=== PATIENT | male | born 1960 | race Caucasian/White ===

== ENCOUNTER 2023-04-25 22:18 | Inpatient (IN) | payer OTHER, SELFPAY ==
[2023-04-25 22:21] VITALS: BP 166/96; PULSE 129; RESP 16; TEMP 36.3; O2SAT 97; BMI 26.6
[2023-04-25 22:27] VITALS: BMI 28.8
--- NOTE | 2023-04-25 23:12 | EDS_ITS ---
HPI History of Present Illness Chief Complaint: Seizure [facility] Medical History Alcohol abuse Home Medications NK 04/25/23 [History Last Taken Unknown] Allergy/AdvReac Type Severity Reaction Status Date / Time No Known Allergies Allergy Verified 04/25/23 22:21 Social History Smoking Status: Never smoker EXAM Physical Exam Const Vital Signs: 04/25/23 22:21 04/26/23 02:08 Temperature 97.4 F L Temperature Source Temporal Pulse Rate 129 H 107 H Respiratory Rate 16 15 Blood Pressure 166/96 H 162/111 H Blood Pressure Mean 119 128 Pulse Ox 97 96 Oxygen Delivery Method Room Air [facility] MDM Narrative Medical decision making narrative: HISTORY OF PRESENT ILLNESS: 63-year-old male here with concern for possible seizure. States he previously drank 6-8 beers and 5-6 shots a day. He further states he may have had a seizure prior to arrival. Patient notes tongue biting and bladder incontinence. He states he has no focal weakness. Denies any chest pain prior to event. Did not fall or have any head trauma. Denies history of alcohol withdrawal. Last drink was 7 days ago. REVIEW OF SYSTEMS: Pertinent positives: Concern for seizure Pertinent negatives: Focal weakness, headache PHYSICAL EXAM: Nursing triage notes reviewed, Vital signs reviewed Constitutional: please see mdm HENT: MMM Eyes: Pupils equal round and reactive to light, Extraocular muscles intact Neck: No stridor, no JVD, full neck ROM Lungs: Clear to auscultation, No wheezing or rales. No increased work of breathing, no conversational dyspnea, no accessory muscle use, no nasal flaring. No respiratory distress noted Heart: Regular rate and rhythm, No murmurs, No rubs and No gallops, 2+ distal pulses (radial, femoral, posterior tibial) in all extremities Abdomen: Soft, there is no tenderness, rigidity, rebound or guarding, no obvious peritoneal signs, no palpable pulsatile abdominal masses, no auscultated abdominal bruit : No CVAT Extremities: No edema Neuro: No focal neurological deficits, cranial nerves II through XII intact, 5/5 strength in all extremities. Intact sensation to light touch in all extremities, 2+ reflexes bilateral patella tendons. Normal gait. No ataxia. Patient appeared tremulous, had tongue fasciculations Skin: No rash or lesions noted MEDICAL DECISION MAKING: Chief Complaint: Possible seizure External records reviewed: No recent ED visits or hospitalizations noted in the chart Factors affecting care: History of alcohol abuse Social determinants of health: History of alcohol abuse History obtained from others: Patient's friend Consults: Internal medicine ALL IMAGES (IF OBTAINED) HAVE BEEN PERSONALLY REVIEWED AND INTERPRETED BY MYSELF. EKG with sinus tachycardia, normal axis, prolonged QT, no STEMI, MDM Narrative: Patient was initially tachycardic, hypertensive. Patient was tremulous, tongue fasciculations. Given hypertension and tachycardia and tremor clinically patient presented that he is in alcohol withdrawal. I considered the following differential diagnosis: Alcohol withdrawal, other intoxication, arrhythmia, seizure disorder, ICH, mass I obtained a CT scan of the patient's head to rule out bleed or mass. CT scan showed no evidence of acute intracranial normality. Labs were remarkable for hypokalemia, hyponatremia, hypomagnesemia this was replaced. Magnesium was empirically replaced. Electrolyte disturbance likely secondary to malnutrition secondary to chronic alcohol abuse. He was given thiamine. He was given fluids. He was given phenobarbital and Ativan for alcohol withdrawal treatment. I spoke with the hospitalist for admission. The patient and/or family, caregivers express understanding. The patient and/or family, caregivers agrees with the plan. Shared decision making: I will have a discussion with the patient and or visitors regarding risk/benefits of further testing or admission. They will be made aware of of the risk/benefits inherent in this decision they will be given the opportunity to voice understanding. Total critical care time today provided was at least 0 [] minutes. This excludes separately billable procedures. Critical care time (if documented) is secondary to the patient having high probability of clinically significant/life threatening deterioration in the patient's condition which required my urgent intervention. Lab Data Attestation: I reviewed the patient's lab results. Lab results narrative: CBC without evidence of leukocytosis, anemia, noted thrombocytopenia BMP with hyponatremia, severe hypokalemia, no anion gap to suggest endorgan hypoperfusion, no HOANG Magnesium is low Noted hyperbilirubinemia, mild elevation in AST no evidence of hepatobiliary obstruction on LFTs Serum alcohol negative Labs: Laboratory Results - last 24 hr 04/25/23 04/26/23 23:25 01:38 WBC 10.5 RBC 3.66 L Hgb 12.4 L Hct 36.0 L MCV 98.4 H MCH 33.9 H MCHC 34.4 RDW Std Deviation 48.0 H RDW Coeff of Blank 13.4 Plt Count 110 L MPV 11.4 Immature Gran % (Auto) 0.700 Neut % (Auto) 75.5 H Lymph % (Auto) 10.3 L [place] % (Auto) 12.4 H Eos % (Auto) 0.3 Baso % (Auto) 0.8 Absolute Neuts (auto) 7.9 H Absolute Lymphs (auto) 1.08 Nucleated RBC % 0 Sodium 135 L Potassium 2.6 L* Chloride 101 Carbon Dioxide 27.0 Anion Gap 7 BUN 12 Creatinine 1.00 Estim Creat Clear Calc 74.10 Est GFR (MDRD) Af Amer 97 Est GFR (MDRD) Non-Af 80 BUN/Creatinine Ratio 12.0 Glucose 127 H Calcium 8.8 Magnesium 1.4 L Total Bilirubin 1.70 H AST 48 H ALT 53 Alkaline Phosphatase 96 Total Protein 7.8 Albumin 3.6 Globulin 4.2 Albumin/Globulin Ratio 0.9 Urine Opiates Screen NEGATIVE Urine Methadone Screen NEGATIVE Ur Barbiturates Screen NEGATIVE Ur Phencyclidine Scrn NEGATIVE Ur Amphetamines Screen NEGATIVE MDMA (Ecstasy) Screen NEGATIVE U Benzodiazepines Scrn NEGATIVE Urine Cocaine Screen NEGATIVE U Cannabinoids Screen NEGATIVE Ur Drug Screen Comment Ethyl Alcohol < 3.0 Radiography Diagnostic Testing: Clinical Impression(s) from Imaging Studies Brain CT 04/26/23 23:36 IMPRESSION: No acute intracranial abnormality. Electronically Signed: Romario Mckinnon DO at 0:23 EDT Reading Location ID and State: [facility] / [place] Tel , Service support , Discharge Plan Triage Chief Complaint: Seizure Other Complaint: Substance Abuse ED Provider: Tom Olivier Dx/Rx/DC Orders Clinical Impression: Alcohol withdrawal, Acute hyponatremia, Acute hypokalemia, Hypomagnesemia Prescriptions: No Action NK Primary Care Provider: Be Reynoso Referrals: Be Reynoso MD [Primary Care Provider] - Disposition Disposition: Acute Care [facility]
[2023-04-25 23:37] LABS: Absolute Lymphocyte Count 1.08 X10^3/uL (0.83-4.51); Absolute Neutrophil Count 7.9 X10^3/uL (2.0-7.7); Basophil# 0.08 X10^3/uL; Basophil% 0.8 % (0-1); Eosinophil# 0.03 X10^3/uL; Eosinophils% 0.3 % (0-5); Hemoglobin 12.4 g/dL (13.0-16.5); Lymphocyte # 1.08 X10^3/ul (0.83-4.51); Lymphocyte % 10.3 % (19-41); Mean Corp Hgb Conc 34.4 g/dL (32-36); Mean Corpuscular Hgb 33.9 pg (27.0-32.0); Mean Corpuscular Volume 98.4 fL (80-94); Mean Platelet Vol. 11.4 fl (6.2-12.0); Monocyte% 12.4 % (0-10); NRBC Flagged by Analyzer 0 % (0-5); Neutrophil % 75.5 % (47-70); Platelet Count 110 K/mm3 (150-450); RBC Distribution Width CV 13.4 % (11.6-14.6); Red Blood Count 3.66 M/mm3 (4.6-6.2); White Blood Count 10.5 K/mm3 (4.4-11.0)
[2023-04-25 23:56] LABS: Alcohol, Blood (Medical)-Serum < 3.0 mg/dL
[2023-04-25] MEDS: LORazepam 2 MG/ML Syringe 1 MG IV (23:59)
[2023-04-26] VITALS (14 sets, daily range): BP systolic 100–162; BP diastolic 58–111; PULSE 84–107; RESP 13–22; TEMP 36.6–37.3; O2SAT 94–100; BMI 29.0
[2023-04-26 00:06] LABS: ALB/GLOB Ratio 0.9 RATIO (0.9-2.4); AST(SGOT) 48 U/L (15-37); Alanine Aminotransfer ALT/SGPT 53 U/L (16-61); Albumin, Serum 3.6 g/dL (3.2-5.0); Alkaline Phosphatase 96 U/L (45-117); Anion Gap 7 (5-15); BUN 12 mg/dL (7-18); Calcium,Total 8.8 mg/dL (8.5-10.1); Chloride 101 mmol/L (98-107); EST Glomerular Filtration Rate 80 mL/min (>60); Est Glom Filt Rate - Afr Amer 97 mL/min (>60); Globulin 4.2 g/dL (2.2-4.2); Glucose 127 mg/dL (74-106); Potassium 2.6 mmol/L (3.5-5.1); Protein, Total 7.8 g/dL (6.4-8.2); Sodium Level 135 mmol/L (136-145)
--- NOTE | 2023-04-26 00:14 | EKG12_ITS ---
Test Reason : Dysrhythmia Blood Pressure : / mmHG Vent. Rate : 115 BPM Atrial Rate : 115 BPM P-R Int : 164 ms QRS Dur : 088 ms QT Int : 348 ms P-R-T Axes : 060 009 057 degrees QTc Int : 481 ms Sinus tachycardia Possible Inferior infarct , age undetermined Abnormal ECG Confirmed by KAYCEE KOHLI, JOSE ([id number]), field map editor ZAKI CORDOVA ([id number]) on 04/28/2023 8:47:19 AM Referred By: Sabina Brandon Confirmed By:KEN BENOIT MD
[2023-04-26 00:32] LABS: Magnesium 1.4 mg/dL (1.6-2.6)
[2023-04-26] MEDS: Potassium Chloride Oral Tablet 20 MEQ 40 MEQ PO ×2 (01:00→07:55)
[2023-04-26] MEDS: Potassium Chloride 10mEq/100mL 10 MEQ/100 ML IV.SOLN. 100 MEQ IV BOLUS ×2 (01:30→02:55)
[2023-04-26 01:58] LABS: Amphetamine Urine VISTA NEGATIVE (<1000 ng/mL); Barbiturate Urine VISTA NEGATIVE (< 200 ng/mL); Benzodiazepine Urine VISTA NEGATIVE (< 200 ng/mL); Cocaine Urine VISTA NEGATIVE (< 300 ng/mL); Ecstacy Urine VISTA NEGATIVE (< 500 ng/mL); Methadone Urine VISTA NEGATIVE (< 300 ng/mL); PCP Urine VISTA NEGATIVE (< 25 ng/mL); THC Urine VISTA NEGATIVE (< 50 ng/mL); Vista UDS pH Range 6
--- NOTE | 2023-04-26 02:02 | HP.PCM.HOS_ITS ---
HPI - General General Date of Admission: 04/26/23 Date of Service: 04/26/23 Chief Complaint: Acute EtOH withdrawal. HPI Narrative The patient is a 63 y/o M w/ PMHx: EtOH abuse (recently attempted to quit, prior 6-8 beers/5-6 liquor shots daily) who presents to the [facility] ED on 04/26/23 with history of abruptly stopping alcohol over the last couple days with onset notable tremors, nausea, intractable emesis, malaise, tactile disturbances and eventually a seizure prompting EMS call with noted loss of bladder and tongue bitting with associated post-ictal phase with eventual improvement of MS in the ED with no associated trauma. He is unsure exactly when his last EtOH intake was reporting to the ED physician initially 1 week but when discussed he is unsure and gives several possibilities. Work-up in the ED included T97.4, heart rate 129, BP 166/96, respiratory rate 16, 97% oxygenation, CBC with a BC 10.5, hemoglobin 12.4, MCV 98.4, platelets 110 with left shift, CMP with sodium 135, potassium 2.6, glucose 127, magnesium 1.4, T. bili 1.74, AST/ALT 48/53 otherwise hepatic profile not marked appearing, UDS negative, ethyl alcohol level less than 3, CT the brain with no acute intracranial, rapid SARS COVID and influenza antigen negative, EKG with sinus tachycardia, normal axis, prolonged QT, no STEMI. In the ED patient administered IV thiamine, potassium 40 mill equivalent p.o. x1, phenobarbital 97.2 mg p.o. x1, magnesium 2 g IV x1 as well as Ativan 1 mg IV x1. [facility] Medical History (Updated 04/26/23 @ 02:[address] Sabina Brandon MD) Alcohol abuse Cannabis use disorder Chronic anemia Overweight Home Medications NK 04/25/23 [History Last Taken Unknown] Allergy/AdvReac Type Severity Reaction Status Date / Time No Known Allergies Allergy Verified 04/25/23 22:21 Family History (Updated 04/26/23 @ 02:[address] Sabina Brandon MD) Mother Rheumatoid arthritis Father Heart disease COPD (chronic obstructive pulmonary disease) Grandmother Alcoholism Maternal side. Grandfather Alcoholism Maternal side. Surgical History (Updated 04/26/23 @ 02:[address] Sabina Brandon MD) History of nasal surgery S/P left knee arthroscopy Social History (Updated 04/26/23 @ 02:[address] Sabina Brandon MD) household members: none Smoking Status: Never smoker alcohol intake: current alcohol intake frequency: 3 or more drinks per day details: 6-8 beers/several liquor shots daily, recently quit. substance use type: marijuana ROS ROS Narrative Admission Review of Systems: CONSTITUTIONAL: No weight loss, fever, chills, + weakness or fatigue. HEENT: Eyes: No visual loss, blurred vision, double vision or yellow sclerae. Ears, Nose, Throat: No hearing loss, sneezing, congestion, runny nose or sore throat. SKIN: No rash or itching, lesions, wounds. CARDIOVASCULAR: No chest pain, chest pressure or chest discomfort, palpitations, edema, orthopnea, syncopal events. RESPIRATORY: No shortness of breath, cough or sputum, wheezing, hemoptysis. GASTROINTESTINAL: + anorexia, nausea, vomiting, No diarrhea, abdominal pain, melena, BRBPR. GENITOURINARY: No dysuria, frequency, urgency or retention. NEUROLOGICAL: + Tremors, tactile disturbances, seizure activity, loss of bladder. No headache, dizziness, syncope, paralysis, ataxia, numbness or tingling in the extremities, focal weakness. MUSCULOSKELETAL: + muscle, back pain, joint pain or stiffness. HEMATOLOGIC: + anemia. LYMPHATICS: No enlarged nodes. No history of splenectomy. PSYCHIATRIC: No history of depression or anxiety. ENDOCRINOLOGIC: No reports of sweating, cold or heat intolerance. No polyuria or polydipsia. ALLERGIES: No history of asthma, hives, eczema or rhinitis. Vital Signs Vital Signs Vital Signs: 04/25/23 22:21 Temperature 97.4 F L Temperature Source Temporal Pulse Rate 129 H Respiratory Rate 16 Blood Pressure 166/96 H Blood Pressure Mean 119 Pulse Ox 97 Weight Weight: 189 lb 9.561 oz Body Mass Index (BMI) 28.8 Physical Exam Narrative Physical Examination: General: Awake, alert, oriented x 3 and cooperative, seated upright in the ED bed, significantly improved since initial ED presentation, postictal phase resolved. Skin: Normal color, normal turgor, no icterus, no cyanosis except occasional staged ecchymoses. HEENT: AT/NC, EOMI, PERRLA, dry MM, no carotid bruits or JVD noted. Lungs: Mildly diminished, greater bases, appropriate effort, no rales, ronchi or wheezing. Heart: Mildly tachycardic with regular rhythm; no gallop, rub audible. Abdomen: Soft, overweight, NTTP, ND, normal BS, appreciated HM. Extremities: No cyanosis, clubbing, or edema. Neurological: Patient awake, alert, oriented as noted, cognitive function intact; pupils equally reactive to light and accommodation, cranial nerves II- XII grossly normal, moving all 4 extremities, no focal deficits, strength improving but moderately global decrease given acute presentation with seizure activity, currently no obvious significant tremors or tactile disturbances. Psychiatric: Affect appears fatigued, no acute evidence of depressive or anxiety feelings. Results Lab / Micro Data 04/25/23 23:25 04/25/23 23:25 Labs: Laboratory Results - last 24 hr 04/25/23 23:25: WBC 10.5, RBC 3.66 L, Hgb 12.4 L, Hct 36.0 L, MCV 98.4 H, MCH 33.9 H, MCHC 34.4, RDW Std Deviation 48.0 H, RDW Coeff of Blank 13.4, Plt Count 110 L, MPV 11.4, Immature Gran % (Auto) 0.700, Neut % (Auto) 75.5 H, Lymph % (Auto) 10.3 L, [place] % (Auto) 12.4 H, Eos % (Auto) 0.3, Baso % (Auto) 0.8, Absolu te Neuts (auto) 7.9 H, Absolute Lymphs (auto) 1.08, Nucleated RBC % 0, Sodium 135 L, Potassium 2.6 L*, Chloride 101, Carbon Dioxide 27.0, Anion Gap 7, BUN 12, Creatinine 1.00, Estim Creat Clear Calc 74.10, Est GFR (MDRD) Af Amer 97, Est GFR (MDRD) Non-Af 80, BUN/Creatinine Ratio 12.0, Glucose 127 H, Calcium 8.8, Magnesium 1.4 L, Total Bilirubin 1.70 H, AST 48 H, ALT 53, Alkaline Phosphatase 96, Total Protein 7.8, Albumin 3.6, Globulin 4.2, Albumin/Globulin Ratio 0.9, Ethyl Alcohol < 3.0 04/26/23 01:38: Urine Opiates Screen NEGATIVE, Urine Methadone Screen NEGATIVE, Ur Barbiturates Screen NEGATIVE, Ur Phencyclidine Scrn NEGATIVE, Ur Amphetamines Screen NEGATIVE, MDMA (Ecstasy) Screen NEGATIVE, U Benzodiazepines Scrn NEG ATIVE, Urine Cocaine Screen NEGATIVE, U Cannabinoids Screen NEGATIVE, Ur Drug Screen Comment Micro: Microbiology 04/26/23 00:55 Nasal Secretion SARS-CoV-2 & FLU Antigen (Rapid) - Final Radiology Impression Brain CT 04/26/23 23:36 IMPRESSION: No acute intracranial abnormality. Electronically Signed: Romario Mckinnon DO at 0:23 EDT , Assessment & Plan Assessment/Plan (1) Alcohol withdrawal seizure: PLAN: Plan The patient is a 63 y/o M w/ PMHx: EtOH abuse (recently attempted to quit, prior 6-8 beers/5-6 liquor shots daily) who presents to the [facility] ED on 04/26/23 with history of abruptly stopping alcohol over the last couple days with onset notab le tremors, nausea, intractable emesis, malaise, tactile disturbances and eventually a seizure prompting EMS call with noted loss of bladder and tongue bitting with associated post-ictal phase. #1. New-Onset seizure secondary to EtOH withdrawal with alcohol abuse history with mild hyperbilirubinemia and transaminitis: Seizure activity with EtOH withdrawal. CBC with a BC 10.5, hemoglobin 12.4, MCV 98.4, platelets 110 with left shift, CMP with sodium 135, potassium 2.6, glucose 127, magnesium 1.4, T. bili 1.74, AST/ALT 48/53 otherwise hepatic profile not marked appearing, UDS negative, ethyl alcohol level less than 3, CT the brain with no acute intracranial, rapid SARS COVID and influenza antigen negative, EKG with sinus tachycardia, normal axis, prolonged QT, no STEMI. Will admit to PCU given currently stable, loaded with phenobarb and ativan without any further seizure activity and mental status now improved to baseline, maintain on telemetry on seizure precautions, maintain on CIWA, will continue phenobarbital taper regimen, maintain on MVI, folic acid, thiamine. PRN ativan IV per CIWA and for recurrent seizure activity. Will obtain mag, phos levels and supplement as needed. Management consulted for substance abuse. #2. Hypokalemia: Admission K+ 2.6, magnesium 1.4, IV supplementation given, repeat level in AM. #3. Hypomagnesemia: Admission magnesium 1.4, IV supplementation initiated per ED, will repeat level this a.m. #4. Hyperglycemia, mild: Admission glucose mildly elevated 127, likely stress response, if repeat in a.m. notable would obtain hemoglobin A1c to clarify. #5. Macrocytic anemia, suspect chronic: Admission hemoglobin 12.4, MCV 98.4, no recent comparison, will repeat CBC in AM. #6. Elevated BP without hypertensive diagnosis: Patient denies any history of hypertension, certainly elevated upon presentation, potentially related with acute presentation, will continue to monitor and if appropriate add oral regimen, as needed IV hydralazine in interim. #7. Chronic cannabis usage: UDS unremarkable but notes common usage, encourage clean status. #8. DVT prophylaxis: We will place Thad alicia given avoidance of SCDs and chemoprophylaxis in case of repeat seizure activity and trauma. Charges/Coding Visit Charges Inpatient E&M: 97763 Init Hosp L3
[2023-04-26] MEDS: Lactated Ringers 1,000 ML 125 ML IV (03:45)
[2023-04-26] MEDS: Phenobarbital 32.4 MG Tablet 97.2 MG PO ×6 (04:01→20:03)
[2023-04-26] MEDS: Potassium Chloride Oral Tablet 20 MEQ PO (04:01)
[2023-04-26 04:27] LABS: Absolute Lymphocyte Count 1.55 X10^3/uL (0.83-4.51); Absolute Neutrophil Count 8.9 X10^3/uL (2.0-7.7); Basophil# 0.08 X10^3/uL; Basophil% 0.7 % (0-1); Eosinophil# 0.03 X10^3/uL; Eosinophils% 0.2 % (0-5); Hematocrit 35.8 % (40-54); Hemoglobin 12.1 g/dL (13.0-16.5); Lymphocyte # 1.55 X10^3/ul (0.83-4.51); Lymphocyte % 12.9 % (19-41); Mean Corp Hgb Conc 33.8 g/dL (32-36); Mean Corpuscular Hgb 33.8 pg (27.0-32.0); Mean Platelet Vol. 11.7 fl (6.2-12.0); Monocyte# 1.41 X10^3/uL; Monocyte% 11.7 % (0-10); NRBC Flagged by Analyzer 0 % (0-5); Neutrophil # 8.91 X10^3/uL (2.7-7.7); Neutrophil % 73.8 % (47-70); Platelet Count 105 K/mm3 (150-450); RBC Distribution Width CV 13.5 % (11.6-14.6); RBC Distribution Width SD 49.1 fl (35.1-43.9); Red Blood Count 3.58 M/mm3 (4.6-6.2); White Blood Count 12.1 K/mm3 (4.4-11.0)
[2023-04-26 04:53] LABS: ALB/GLOB Ratio 0.8 RATIO (0.9-2.4); AST(SGOT) 54 U/L (15-37); Alanine Aminotransfer ALT/SGPT 50 U/L (16-61); Albumin, Serum 3.3 g/dL (3.2-5.0); Alkaline Phosphatase 93 U/L (45-117); Anion Gap 8 (5-15); BUN 9 mg/dL (7-18); BUN/Creat Ratio 11.2 RATIO (10-20); Calcium,Total 8.8 mg/dL (8.5-10.1); Chloride 104 mmol/L (98-107); EST Glomerular Filtration Rate 104 mL/min (>60); Est Glom Filt Rate - Afr Amer 125 mL/min (>60); Estimated Creatinine Clearance 92.63 ml/min; Globulin 4.3 g/dL (2.2-4.2); Glucose 103 mg/dL (74-106); Magnesium 1.9 mg/dL (1.6-2.6); Potassium 3.3 mmol/L (3.5-5.1); Protein, Total 7.6 g/dL (6.4-8.2); Sodium Level 137 mmol/L (136-145)
[2023-04-26 05:00] LABS: Phosphorus 3.4 mg/dL (2.5-4.9)
[2023-04-26] MEDS: Thiamine Hydrochloride 100 MG Tablet PO (07:56)
[2023-04-26] MEDS: Folic Acid 1 MG Tablet PO (07:56)
--- NOTE | 2023-04-26 10:10 | PCM.PROGNOTE ---
Subjective Subjective Patient seen and examined. He had no complaints. HE was admitted for alcohol withdrawal seizures. He hasnt had any more seizures since admission. He denies any tremors, shakes, increased sweating or abdominal pain. Review of systems is otherwise negative. He has remained hemodynamically stable. Objective Data Objective Data Vital Signs: Vital Signs Temp Pulse Resp BP Pulse Ox O2 Del Method 98.3 F 96 13 141/88 H 99 Room Air 04/26/23 08:00 04/26/23 08:00 04/26/23 08:00 04/26/23 08:00 04/26/23 08:00 04/26/23 08:00 Oxygen Delivery Method Room Air Weight: 190 lb 14.725 oz Body Mass Index (BMI) 29.0 Intake & Output: Intake and Output for Last 24 Hours 04/24/23 04/25/23 04/26/23 23:59 23:59 23:59 Intake Total 452.93 / 452.93 Balance 452.93 / 452.93 Lab / Micro Data 04/26/23 04:15 04/26/23 04:15 Labs: Laboratory Results - last 24 hr 04/25/23 23:25: WBC 10.5, RBC 3.66 L, Hgb 12.4 L, Hct 36.0 L, MCV 98.4 H, MCH 33.9 H, MCHC 34.4, RDW Std Deviation 48.0 H, RDW Coeff of Blank 13.4, Plt Count 110 L, MPV 11.4, Immature Gran % (Auto) 0.700, Neut % (Auto) 75.5 H, Lymph % (Auto) 10.3 L, [place] % (Auto) 12.4 H, Eos % (Auto) 0.3, Baso % (Auto) 0.8, Absolute Neuts (auto) 7.9 H, Absolute Lymphs (auto) 1.08, Nucleated RBC % 0, Sodium 135 L, Potassium 2.6 L*, Chloride 101, Carbon Dioxide 27.0, Anion Gap 7, BUN 12, Creatinine 1.00, Estim Creat Clear Calc 74.10, Est GFR (MDRD) Af Amer 97, Est GFR (MDRD) Non-Af 80, BUN/Creatinine Ratio 12.0, Glucose 127 H, Calcium 8.8, Magnesium 1.4 L, Total Bilirubin 1.70 H, AST 48 H, ALT 53, Alkaline Phosphatase 96, Total Protein 7.8, Albumin 3.6, Globulin 4.2, Albumin/Globulin Ratio 0.9, Ethyl Alcohol < 3.0 04/26/23 01:38: Urine Opiates Screen NEGATIVE, Urine Methadone Screen NEGATIVE, Ur Barbiturates Screen NEGATIVE, Ur Phencyclidine Scrn NEGATIVE, Ur Amphetamines Screen NEGATIVE, MDMA (Ecstasy) Screen NEGATIVE, U Benzodiazepines Scrn NEGATIVE, Urine Cocaine Screen NEGATIVE, U Cannabinoids Screen NEGATIVE, Ur Drug Screen Comment 04/26/23 04:15: WBC 12.1 H, RBC 3.58 L, Hgb 12.1 L, Hct 35.8 L, MCV 100.0 H, MCH 33.8 H, MCHC 33.8, RDW Std Deviation 49.1 H, RDW Coeff of Blank 13.5, Plt Count 105 L, MPV 11.7, Immature Gran % (Auto) 0.700, Neut % (Auto) 73.8 H, Lymph % (Auto) 12.9 L, [place] % (Auto) 11.7 H, Eos % (Auto) 0.2, Baso % (Auto) 0.7, Absolute Neuts (auto) 8.9 H, Absolute Lymphs (auto) 1.55, Nucleated RBC % 0, Sodium 137, Potassium 3.3 L, Chloride 104, Carbon Dioxide 25.0, Anion Gap 8, BUN 9, Creatinine 0.80, Estim Creat Clear Calc 92.63, Est GFR (MDRD) Af Amer 125, Est GFR (MDRD) Non-Af 104, BUN/Creatinine Ratio 11.2, Glucose 103, Calcium 8.8, Phosphorus 3.4, Magnesium 1.9, Total Bilirubin 1.50 H, AST 54 H, ALT 50, Alkaline Phosphatase 93, Total Protein 7.6, Albumin 3.3, Globulin 4.3 H, Albumin/Globulin Ratio 0.8 L Micro: Microbiology 04/26/23 00:55 Nasal Secretion SARS-CoV-2 & FLU Antigen (Rapid) - Final Radiography Diagnostic Testing: Radiology Impression Brain CT 04/26/23 23:36 IMPRESSION: No acute intracranial abnormality. Electronically Signed: Romario Mckinnon DO at 0:23 EDT , Physical Exam Const alert, oriented x3 and no apparent distress General Appearance: cooperative HEENT normocephalic, head/scalp atraumatic, moist oral mucous membranes and oropharynx normal Eyes PERRL and EOMs intact bilaterally Neck no lymphadenopathy and supple Lymph Lymphatic: no lymphadenopathy noted and no lymphedema noted Resp normal respiratory effort, normal air movement and clear to auscultation bilaterally Cardio regular rate, regular rhythm, S1 normal heart sound, S2 normal heart sound and no murmurs GI normal to inspection, nondistended, normoactive bowel sounds, soft to palpation, non-tender and non-distended Extremity normal capillary refill, no clubbing, cyanosis or edema and no calf tenderness General Extremity: no tenderness to palpation of joints or extremities Skin General Skin Exam: no breakdown Neuro CN's II-XII intact bilaterally, no focal motor deficits, no sensory deficits noted and deep tendon reflexes 2+ bilaterally Motor Exam: strength 5/5 throughout Psych thought process normal and cooperative Appearance: appropriate Assessment & Plan Assessment/Plan (1) Alcohol withdrawal seizure: (2) Hypomagnesemia: (3) Acute hypokalemia: PLAN: Plan #Acute alcohol withdrawal with seizure has no complaints today. Hasnt had any more seizures since admission on alcohol withdrawal protocol with phenobarbital on thiamine, folic acid and multivite. Adjunctive meds for symptomatic relief. CT of hte brain showed no acute intracranial pathology seizure precautions #Hypokalemia and hypomagnesemia: potassium is 3.3 Will replace. Magnesium is up to 1.9 #Elevated BP:not a known hypertensive. BP is 141/88 this morning. May be due to alcohol withdrawal. Will monitor for now. #Chronic cannabis use: counseled to quit DVT prophylaxis; low risk. on KRYS stockings. Charges/Coding Visit Charges Inpatient E&M: 50507 Subs Hosp L2
--- NOTE | 2023-04-26 21:47 | CASEMGMT ---
Social Work SW introduced self and role to patient. Pt here for alcohol withdrawal symptoms. Pt reports his seizure was not related to alcohol withdrawal and that it had been 3+ days since he had drank alcohol. Pt reports he was ill with poss. stomach flu or food poisoning and had gotten dehydrated prior to hospitalization. Pt denies any withdrawal symptoms. Pt reports he stopped drinking and he is not in need of substance abuse services or resources. SW provided support. Waleska Pisano DRY PRIMER POWDER BLENDER, ACID ETCH OPERATOR
--- NOTE | 2023-04-26 22:43 | NURSING ---
This RN was approached by patient in the [facility]. Patient stated that he felt better and wanted to go home. This RN educated patient on the importance of staying. MD notified, patient signed AMA form and was walked to front door.
--- NOTE | 2023-04-26 23:03 | PCM.HOSP.N ---
Hospitalist Note Despite encouragement to continued treatment, patient left AMA 04/26/23 9:55 pm.
--- NOTE | 2023-04-26 23:36 | CT_ITS ---
INDICATION: seizure EXAMINATION: CT BRAIN - CT Head or Brain W/O Contrast Injection TECHNIQUE: Multiple axial images were obtained of the head with sagittal and coronal reconstructed images. Individualized dose optimization techniques were used for this CT. IV contrast dosage and agent: None. COMPARISON: None. FINDINGS: BRAIN PARENCHYMA: No evidence of an acute infarct or intracranial hemorrhage. No evidence of a mass. CSF SPACES: The ventricles, sulci and subarachnoid cisterns are appropriate for age. CALVARIUM, SKULL BASE, PARANASAL SINUSES AND MASTOID AIR CELLS: No fracture. Mastoid air cells are clear. Mucosal thickening of the bilateral maxillary sinuses. ORBITS: The globes, extraocular muscles, optic nerves and retrobulbar fat are unremarkable. CT/Brain/Head without Contrast IMPRESSION: No acute intracranial abnormality. Electronically Signed: Romario Mckinnon DO at 0:23 EDT ,
--- NOTE | 2023-04-27 07:16 | DS.PCM_ITS ---
Providers Date of Admission: 04/26/23 Date of Discharge: 04/26/23 Primary Care Physician: Dr. Be Reynoso MD Reason For Visit: ETOH WITHDRAWAL, SEIZURES Diagnosis Discharge Diagnosis (1) Alcohol withdrawal seizure: Status: Acute Code(s): F10.939 - Alcohol use, unspecified with withdrawal, unspecified; R56.9 - Unspecified convulsions (2) Hypomagnesemia: Status: Acute Code(s): E83.42 - Hypomagnesemia (3) Acute hypokalemia: Status: Acute Code(s): E87.6 - Hypokalemia Plan #Acute alcohol withdrawal with seizure * has no complaints today. Hasnt had any more seizures since admission * on alcohol withdrawal protocol with phenobarbital * on thiamine, folic acid and multivite. * Adjunctive meds for symptomatic relief. * CT of hte brain showed no acute intracranial pathology * seizure precautions * #Hypokalemia and hypomagnesemia: potassium is 3.3 Will replace. Magnesium is up to 1.9 #Elevated BP:not a known hypertensive. BP is 141/88 this morning. May be due to alcohol withdrawal. Will monitor for now. #Chronic cannabis use: counseled to quit DVT prophylaxis; low risk. on KRYS stockings. Medications at Discharge Home Medications NK 04/25/23 Hospital Course Operations None Procedures None Summary of Care Provided Minutes Spent on Discharge: 45 Hospital Course: Patient is a 63-year-old male with a past medical history as outlined was admitted through the ED on 04/26/2023 with tremors, nausea and intractable emesis as well as malaise and tactile disturbances and seizure with postictal bladder incontinence and tongue biting. Patient had a history of chronic alcohol abuse and drank about 6-8 beers as well as 5-6 liquid shots daily. He had tried to abruptly stop drinking alcohol over the last couple of days and had had the above-mentioned symptoms. Urine tox was negative and serum alcohol level was less than 3. CT of the brain showed no acute intracranial pathology. He was admitted and managed for acute alcohol withdrawal with alcohol withdrawal seizure and started on phenobarbital withdrawal protocol. He was also placed on thiamine, folic acid and Multivite. His potassium was low so he was also given potassium replacement. Patient subsequently improved and felt better. However later on the day of admission, patient signed out AGAINST MEDICAL ADVICE. Patient was earlier in the day he signed out AGAINST MEDICAL ADVICE. He had had no complaints and felt well and had been willing to stay for treatment. However he subsequently decided to leave AGAINST MEDICAL ADVICE. Review of systems then was otherwise negative. Physical Exam Const alert, oriented x3 and no apparent distress General Appearance: cooperative, comfortable and well kempt HEENT normocephalic, head/scalp atraumatic, hearing grossly normal bilaterally, moist oral mucous membranes and oropharynx normal Mouth: oral and palatal mucosa normal Eyes PERRL, EOMs intact bilaterally and conjunctivae normal Neck no lymphadenopathy and supple Lymph Lymphatic: no lymphadenopathy noted and no lymphedema noted Resp normal respiratory effort, normal air movement and clear to auscultation bilaterally Cardio regular rate, regular rhythm, S1 normal heart sound, S2 normal heart sound and no murmurs GI normal to inspection, nondistended, normoactive bowel sounds, soft to palpation, non-tender and non-distended Extremity normal to inspection, full ROM, normal capillary refill, no clubbing, cyanosis or edema and no calf tenderness General Extremity: no tenderness to palpation of joints or extremities Skin no rashes or lesions noted General Skin Exam: no breakdown Neuro oriented x3, CN's II-XII intact bilaterally, moves all extremities, no focal motor deficits, no sensory deficits noted and deep tendon reflexes 2+ bilaterally Sensorium / Orientation: awake and alert Motor Exam: strength 5/5 throughout Psych thought process normal and cooperative Appearance: appropriate Weight / BMI Weight Weight: 190 lb 14.725 oz Body Mass Index (BMI) 29.0 ABG / Lab / Microbiology Data 04/26/23 04:15 04/26/23 04:15 Microbiology: Microbiology 04/26/23 00:55 Nasal Secretion SARS-CoV-2 & FLU Antigen (Rapid) - Final Meaningful Use Info Meaningful Use Diagnoses (Choose all that apply): None applicable Discharge Plan Admission Admit Date/Time: 04/26/23 02:02 Primary Reason for Your Visit: acute alcohol withdrawal with alcohol withdrawal seizure Attending Provider: Vi Tai Primary Care Provider: Be Reynoso Consulting Providers: Sabina Brandon Discharge Orders/Prescriptions Prescriptions: No Action NK Referrals / Follow Up: Be Reynoso MD [Primary Care Provider] - Within 1 Week Disposition Disposition (needs filled in before D/C Order can be placed): Against Medical Advice Charges/Coding Visit Charges Inpatient E&M: 24455 Disch Hosp >30min
== END 2023-04-26 22:08 | disposition left against medical advice (07) | DRG 894 ==
LOC: ED 04-26 02:25 → ICU 04-26 02:28 → PCU 04-26 17:33
PROVIDERS: Admitting Provider Family Medicine; Emergency Provider Emergency Medicine; PCP Family Medicine; Referring Provider Family Medicine; Visit Provider Student in an Organized Health Care Education/Training Program
DX: F10.139 Alcohol abuse with withdrawal, unspecified (principal); E87.1 Hypo-osmolality and hyponatremia; R56.9 Unspecified convulsions; D53.9 Nutritional anemia, unspecified; E87.6 Hypokalemia; E83.42 Hypomagnesemia; R25.3 Fasciculation; E80.7 Disorder of bilirubin metabolism, unspecified; Z53.29 Procedure and treatment not carried out because of patient's decision for other reasons; Y90.0 Blood alcohol level of less than 20 mg/100 ml; R03.0 Elevated blood-pressure reading, without diagnosis of hypertension; R73.9 Hyperglycemia, unspecified
CPT/HCPCS: 70450; 80053; 80307; 82077; 83735; 84100; 85025; 87428; 93005; 99285; J7050; J7120; A4216; J3490